=== PATIENT | male | born 1980 | race African-American/Black ===

== ENCOUNTER 2018-10-28 04:49 | Inpatient (IN) ==
[2018-10-28] MEDS ORDERED: Bisacodyl 10 MG Supp RECTAL PRN (10:25)
[2018-10-28] MEDS ORDERED: Aluminum/Magnesium/Simethacone Susp 30 ML UDC PO PRN (10:25)
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
[2018-10-28] MEDS: Senna/Docusate Sodium 8.6/50 MG Tablet PO SCH (20:53)
[2018-10-29 07:57] LABS: Anion Gap 7 meq/L (5-15); Blood Urea Nitrogen 17 mg/dL (7-18); Calcium 8.5 mg/dL (8.5-10.1); Carbon Dioxide 29.4 meq/L (21.0-32.0); Chloride 104 meq/L (98-107); Glomerular Filtration Rate Greater Than 89 mL/min (>89); Glucose,Random 92 mg/dL (74-106); Potassium 4.4 meq/L (3.5-5.1); Sodium 140 meq/L (136-145); Triglycerides 50 mg/dL (42-150)
[2018-10-29 07:59] LABS: Chol/HDL Ratio 4.16 Ratio; Cholesterol 238 mg/dL (120-200); HDL Cholesterol 57.1 mg/dL (40.0-60.0); LDL Cholesterol,Calculated 171 mg/dL (0-99)
[2018-10-29] MEDS: Sertraline 50 MG Tablet PO SCH (08:26)
--- NOTE | 2018-10-29 11:44 | P.PNPSY ---
Subjective Chief Complaint: "My main problem is my depression" Remarks: Patient seen for follow-up, chart reviewed, patient discussed with nursing staff ; we reviewed the patient's mood, thoughts, and behaviors from overnight and this morning. Nursing reports the patient has appeared subdued and been mostly seclusive. He seemed to sleep through the night. All signs have been stable. The patient was seen during recreational therapy and appeared to enjoy himself playing the Wii. Patient denies any side effects from start of his medication. He reports sleeping well and denies any paranoid thoughts. He continues to express motivation for his recovery and would like help being placed in a residential treatment center for dual diagnosis. He denies current suicidal ideations and he denies current auditory or visual hallucinations. Review of Systems All other systems reviewed negative except as stated in HPI Mental Status Examination Appearance: Appropriate Consciousness: Alert Orientation: x4 Motor Activity: Normal gait Speech: Unremarkable Language: Adequate Fund of Knowledge: Adequate Attention and Concentration: Adequate Memory: Unremarkable Mood: Sad, Anxious Affect: Appropriate Thought Process & Associations: Intact Thought Content: Appropriate Hallucination Type: None Delusion Type: None Suicidal Ideation: No Suicidal Plan: No Suicidal Intention: No Homicidal Ideation: No Homicidal Plan: No Homicidal Intention: No Insight: Fair Judgment: Impulsive Assessment and Plan - Assessment (1) Schizoaffective disorder, bipolar type Code(s): F25.0 - Schizoaffective disorder, bipolar type Status: Chronic (2) Stimulant use disorder Code(s): F15.90 - Other stimulant use, unspecified, uncomplicated Status: Acute - Plan Plan: Estimated LOS: [7] days 10/28/2018: 1. Continue with admission to inpatient psychiatry at [facility]; convert to voluntary/competent legal status. 2. Routine unit precautions. 3. Comfort medications ordered for as needed treatment of constipation, heartburn, diarrhea, and mild pain. 4. Hydroxyzine 50mg po q6H prn anxiety/insomnia. 5. Patient will participate in the unit programming to include group therapies , milieu therapy and recreational therapies. 6. Start Zoloft 50 mg a day for treatment of depression. 7. Start Latuda 40 mg with supper for treatment of schizoaffective disorder with depressed mood. 8. Start trazodone 50 mg at bedtime as needed for insomnia. 9. Discharge planning: The patient is interested in being referred to a residential treatment program and reportedly has made efforts to apply to a men' s program with [facility] in [place]. The patient is also seeking assistance with getting a personal identification card. 10/29/2018: Good initial response to inpatient stabilization and treatment. He has tolerated the start of psychotropics and is reporting improvement in mood and a remission and suicidal ideations. He denies auditory or visual hallucinations but he remains seclusive and avoidant of most interactions with staff or peers. He remains motivated for recovery. Continue current treatment plan and inpatient stabilization. Discharge planning: Unit administrator social welfare to work with patient on processing his application for admission to a residential treatment center as well as assistance in securing a new identification card. Justification for Continued Inpatient Stay: Patient remains an elevated risk for self-harm and will require further inpatient stabilization and preparation of a safe discharge plan. Moving patient to a less restrictive environment at this time may result in decompensation. Request Healthcare Surrogate/Guardian Advocate?: No
[2018-10-29 16:51] LABS: Hemoglobin A1c 5.6 % (4.3-6.0)
[2018-10-29] MEDS: Senna/Docusate Sodium 8.6/50 MG Tablet PO SCH (18:12)
[2018-10-29] MEDS: traZODone 50 MG Tablet PO PRN (20:40)
[2018-10-30] MEDS: Sertraline 50 MG Tablet PO SCH (08:05)
--- NOTE | 2018-10-30 12:01 | P.PNPSY ---
Subjective Chief Complaint: "My main problem is my depression" Remarks: Patient seen for follow-up, chart reviewed, patient discussed with nursing staff ; we reviewed the patient's mood, thoughts, and behaviors from overnight and this morning. Nursing reports that the patient denies suicidal ideations or homicidal ideations and he also denies any hallucinations; he has been pleasant and appropriate within the milieu. Patient was observed dissipating and recreational therapy and his behavior was appropriate. Patient had no complaints today and expressed that he feels safe on the unit and it has helped with his motivation for recovery and his hopefulness. He has tolerated the start of medications and reports sleeping well with trazodone overnight. The patient also reports that he is making contact with different recovery centers in an effort to find acceptance into a residential treatment program. Review of Systems All other systems reviewed negative except as stated in HPI Mental Status Examination Appearance: Appropriate Consciousness: Alert Orientation: x4 Motor Activity: Normal gait Speech: Unremarkable Language: Adequate Fund of Knowledge: Adequate Attention and Concentration: Adequate Memory: Unremarkable Mood: Appropriate, Anxious Affect: Appropriate Thought Process & Associations: Intact Thought Content: Appropriate Hallucination Type: None Delusion Type: None Suicidal Ideation: No Suicidal Plan: No Suicidal Intention: No Homicidal Ideation: No Homicidal Plan: No Homicidal Intention: No Insight: Fair Judgment: Impulsive Assessment and Plan - Assessment (1) Recurrent major depression-severe Code(s): F33.2 - Major depressive disorder, recurrent severe without psychotic features Status: Acute (2) Stimulant use disorder Code(s): F15.90 - Other stimulant use, unspecified, uncomplicated Status: Acute (3) Schizoaffective disorder, bipolar type Code(s): F25.0 - Schizoaffective disorder, bipolar type Status: Suspected - Plan Plan: Estimated LOS: [7] days 10/28/2018: 1. Continue with admission to inpatient psychiatry at [facility]; convert to voluntary/competent legal status. 2. Routine unit precautions. 3. Comfort medications ordered for as needed treatment of constipation, heartburn, diarrhea, and mild pain. 4. Hydroxyzine 50mg po q6H prn anxiety/insomnia. 5. Patient will participate in the unit programming to include group therapies , milieu therapy and recreational therapies. 6. Start Zoloft 50 mg a day for treatment of depression. 7. Start Latuda 40 mg with supper for treatment of schizoaffective disorder with depressed mood. 8. Start trazodone 50 mg at bedtime as needed for insomnia. 9. Discharge planning: The patient is interested in being referred to a residential treatment program and reportedly has made efforts to apply to a men' s program with [facility] in [place]. The patient is also seeking assistance with getting a personal identification card. 10/29/2018: Good initial response to inpatient stabilization and treatment. He has tolerated the start of psychotropics and is reporting improvement in mood and a remission and suicidal ideations. He denies auditory or visual hallucinations but he remains seclusive and avoidant of most interactions with staff or peers. He remains motivated for recovery. Continue current treatment plan and inpatient stabilization. Discharge planning: Unit family welfare social work professor to work with patient on processing his application for admission to a residential treatment center as well as assistance in securing a new identification card. 10/30/2018: Good response to treatment, the patient is now denying any symptoms of psychosis and he denies active suicidal thoughts and he has tolerated the start of psychotropic medications to treat his depression and symptoms of psychosis. Continue current treatment plan and inpatient stabilization. Discharge planning: Unit family welfare social work professor to work with patient on processing his application for admission to a residential treatment center as well as assistance in securing a new identification card. Anticipate discharge early next week. Justification for Continued Inpatient Stay: Patient remains an elevated risk for self-harm and will require further inpatient stabilization and preparation of a safe discharge plan. Moving patient to a less restrictive environment at this time may result in decompensation. Request Healthcare Surrogate/Guardian Advocate?: No
[2018-10-30] MEDS: traZODone 50 MG Tablet PO PRN (20:34)
[2018-10-31] MEDS: Sertraline 50 MG Tablet PO SCH (08:23)
--- NOTE | 2018-10-31 13:18 | P.PNPSY ---
Subjective Chief Complaint: "My main problem is my depression" Remarks: Reviewed electronic medical records and discussed case with staff. Follow-up was conducted in the recreation area. Patient has been compliant with his medications and has had no behavioral disturbances. He reports that he is "doing fine". He is sleeping and eating well. States that he is "kind of happy ". He then goes on to say that he is rather depressed in the context of his homelessness. He is observed during the activity. Going from a young lady to young lady flirting with him. He seems to be malingering for senior care. Mental Status Examination Appearance: Appropriate Consciousness: Alert Orientation: x4 Motor Activity: Normal gait Speech: Unremarkable Language: Adequate Fund of Knowledge: Adequate Attention and Concentration: Adequate Memory: Unremarkable Mood: Appropriate, Anxious Affect: Appropriate Thought Process & Associations: Intact Thought Content: Appropriate Hallucination Type: None Delusion Type: None Suicidal Ideation: No Suicidal Plan: No Suicidal Intention: No Homicidal Ideation: No Homicidal Plan: No Homicidal Intention: No Insight: Fair Judgment: Impulsive Assessment and Plan - Assessment (1) Recurrent major depression-severe Code(s): F33.2 - Major depressive disorder, recurrent severe without psychotic features Status: Acute - Plan Plan: Patient will be reevaluated by the attending psychiatrist. Continue with current treatment plan. Justification for Continued Inpatient Stay: Moving this patient to a less restrictive environment would likely result in decompensation. Request Healthcare Surrogate/Guardian Advocate?: No
[2018-10-31] MEDS: traZODone 50 MG Tablet PO PRN (20:16)
[2018-11-01] MEDS: Sertraline 50 MG Tablet PO SCH (08:48)
--- NOTE | 2018-11-01 14:05 | P.PNPSY ---
Subjective Chief Complaint: "My main problem is my depression" Remarks: Patient seen and examined with nurse in weekend coverage for Dr. Tierney. Chart reviewed. Case discussed with nursing staff. On my examination today, the patient reports that he notes definite improvement in his mood. He is up and participating in unit activities. He denies any suicidal or homicidal ideation. He does report hearing music in his head but otherwise denies any hallucinations. Denies side effects from medications besides possibly some mild constipation. Last bowel movement was this morning but quantity was reportedly insufficient. No physical complaints otherwise. Review of Systems All other systems reviewed negative except as stated in HPI Mental Status Examination Appearance: Appropriate Consciousness: Alert Orientation: Person, Place (At least) Motor Activity: Normal gait, Other (No motor abnormalities noted) Speech: Unremarkable Language: Adequate Fund of Knowledge: Adequate Attention and Concentration: Adequate Memory: Unremarkable Mood: Appropriate, Good Affect: Appropriate, Euthymic Thought Process & Associations: Intact Thought Content: Appropriate Hallucination Type: None Delusion Type: None Suicidal Ideation: No Suicidal Plan: No Suicidal Intention: No Homicidal Ideation: No Homicidal Plan: No Homicidal Intention: No Insight: Fair Judgment: Impulsive Assessment and Plan - Assessment (1) Recurrent major depression-severe Code(s): F33.2 - Major depressive disorder, recurrent severe without psychotic features Status: Acute (2) Stimulant use disorder Code(s): F15.90 - Other stimulant use, unspecified, uncomplicated Status: Acute (3) Schizoaffective disorder, bipolar type Code(s): F25.0 - Schizoaffective disorder, bipolar type Status: Suspected - Plan Plan: Add Tracy-Colace for complaints of constipation. I did offer to adjust patient' s Latuda for complaints of hearing music in his head, but the patient does not wish to adjust this medication at this time. Continue current psychotropics as ordered. Continue to monitor on the inpatient unit. Continue other medications and care as ordered. Justification for Continued Inpatient Stay: Risk for decompensation Discharge Planning: Per Dr. Tierney Request Healthcare Surrogate/Guardian Advocate?: No
[2018-11-01] MEDS: Senna/Docusate Sodium 8.6/50 MG Tablet PO SCH (20:46)
[2018-11-02] MEDS: Senna/Docusate Sodium 8.6/50 MG Tablet PO SCH ×2 (08:23→20:54)
[2018-11-02] MEDS: Sertraline 50 MG Tablet PO SCH (08:23)
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
[2018-11-02] MEDS: traZODone 50 MG Tablet PO PRN (23:24)
[2018-11-03 05:56] VITALS: BP 93/54; PULSE 61; RESP 16; TEMP 97.5; O2SAT 100
== END 2018-11-03 07:25 | disposition home or self-care (01) ==
LOC: H260 10:11
PROVIDERS: ADMIT Psychiatry & Neurology Psychiatry; ATTEND Psychiatry & Neurology Psychiatry